=== PATIENT | female | born 1940 | race Caucasian/White ===

== ENCOUNTER 2018-05-19 23:23 | Emergency (ER) | payer BC, MEDICARE, OTHER ==
[~2018-05-19] VITALS: Ht 162.6 cm; Wt 51.7 kg
--- NOTE | 2018-05-19 23:57 | NUR ---
PT AA/OX4 COMPLAINING OF CHEST AND BACK PAIN X4 DAYS THAT INCREASES ON RESPIRATORY INSPIRATION. "I GOT BLOOD WORK DONE TODAY AND THEY SAID THAT I HAD A HIGH WBC AND D-DIMER." NO S/S OF SOB. SKIN PINK,WARM, DRY. NAD. VSS. NAD. AWAITING ORDERS. WILL CONTINUE TO MONITOR.
[2018-05-20 00:28] LABS: BASOPHILS % (AUTO) 0.4 % (0.0-2.0); EOSINOPHILS % (AUTO) 0.2 % (0.0-6.0); HEMATOCRIT 35 % (33-45); HEMOGLOBIN 11.6 g/dL (11.5-14.8); LYMPHOCYTES # (AUTO) 1.1 /CMM (0.8-4.8); MEAN CORPUSCULAR HEMOGLOBIN 30 PG (26.0-33.0); MEAN CORPUSCULAR HGB CONC 34 g/dl (31.0-36.0); MEAN CORPUSCULAR VOLUME 90 fL (82-100); MONOCYTES # (AUTO) 1.2 /CMM (0.1-1.30); MONOCYTES % (AUTO) 13.4 % (2.0-12.0); NEUTROPHILS # (AUTO) 6.6 /CMM (1.8-8.9); PLATELET COUNT (AUTO) 390 /CMM (150-450); RDW COEFFICIENT OF VARIATION 13.2 (11.5-15.0); RED BLOOD CELL COUNT(AUTO) 3.84 MIL/uL (4.0-5.2)
[2018-05-20] MEDS ORDERED: IV NS 0.9% 500 ML BAG IV ONE (00:30)
[2018-05-20 00:40] LABS: CALCIUM, SERUM 8.4 mg/dL (8.5-10.1); CARBON DIOXIDE 30 mmol/L (21-32); CHLORIDE 101 mmol/L (98-107); CREATININE 0.8 mg/dL (0.6-1.3); GLUCOSE 121 mg/dL (74-106); POTASSIUM 4.3 mmol/L (3.5-5.1); SODIUM SERUM 134 mmol/L (136-145); UREA NITROGEN, BLOOD 14 mg/dL (7-18)
[2018-05-20 00:47] LABS: TROPONIN I < 0.017 ng/mL (0.00-0.056)
[2018-05-20] MEDS ORDERED: IV NS 0.9% 250 ML IV ONE (00:51)
[2018-05-20] MEDS ORDERED: CT SWABBABLE VALVE TRANS SET 1 EA INFUS.SET MC ONE (00:51)
[2018-05-20] MEDS ORDERED: IOHEXOL-350 100 ML VIAL IV ONE (00:51)
--- NOTE | 2018-05-20 01:06 | NUR ---
BROUGHT TO CT
--- NOTE | 2018-05-20 02:04 | NUR ---
AMBULATED TO BATHROOM WITH STABLE GAIT. NAD. VSS. STABLE CONDITION. WILL CONTINUE TO MONITOR
--- NOTE | 2018-05-20 02:15 | NUR ---
Patient discharged to home in stable condition. Written and verbal after care instructions given. Patient verbalizes understanding of instruction. IV removed. Catheter intact and site benign. Pressure and 4x4 applied to site. No bleeding noted. AMBULATED WITH STEADY GAIT UPON DC. VSS. NAD
[2018-05-20 02:16] VITALS: BP 119/70
== END 2018-05-20 02:16 | disposition home or self-care (01) ==
LOC: ER 23:25
DX: R07.81 Pleurodynia (principal); R53.1 Weakness; F32.9 Major depressive disorder, single episode, unspecified; F41.9 Anxiety disorder, unspecified; Z90.89 Acquired absence of other organs; Z90.49 Acquired absence of other specified parts of digestive tract; Z98.890 Other specified postprocedural states
CPT/HCPCS: 36415; 80048-TC; 84484-TC; 85025-TC; A4606; J7040; J7050; Q9967; Z7610